=== PATIENT | female | born 1970 | race Caucasian/White ===

== ENCOUNTER → 2023-10-12 16:05 | Outpatient (REF) | payer OTHER, SELFPAY | LOC: HWWDC 16:05 | PROVIDERS: ATTENDING PHYSICIAN Nurse Practitioner Adult Health | DX: Z12.31 Encounter for screening mammogram for malignant neoplasm of breast (principal) | CPT/HCPCS: 77063; 77067 ==

== ENCOUNTER → 2024-06-15 09:13 | Outpatient (REF) | payer OTHER, SELFPAY | LOC: WDC 09:13 | PROVIDERS: ATTENDING PHYSICIAN Nurse Practitioner Family; FAMILY PHYSICIAN Family Medicine | DX: N63.10 Unspecified lump in the right breast, unspecified quadrant (principal); N64.4 Mastodynia | CPT/HCPCS: 76642; 77061; 77065 ==

== ENCOUNTER → 2024-12-06 11:09 | Outpatient (REF) | payer OTHER, SELFPAY | LOC: HWWDC 11:09 | PROVIDERS: ATTENDING PHYSICIAN Obstetrics & Gynecology Gynecology; FAMILY PHYSICIAN Family Medicine | DX: Z12.31 Encounter for screening mammogram for malignant neoplasm of breast (principal) | CPT/HCPCS: 77063; 77067 ==

== ENCOUNTER 2025-03-11 03:42 | Emergency (ER) | payer OTHER, SELFPAY ==
[2025-03-11 03:50] VITALS: BP 155/98
[2025-03-11 04:27] LABS: Hematocrit 41.2 % (37.0-47.0); Hemoglobin 14.5 g/dL (12.0-16.0); Mean Corp Hgb Conc. 35.2 g/dL (33.0-37.0); Mean Corpuscular Volume 83.4 fL (81.0-99.0); Nucleated Red Blood Cells % 0 %; Platelet Count 148 10^3/uL (130-400); Red Cell Dist. Width 12.2 % (11.5-14.5)
[2025-03-11 04:50] LABS: ALT (SGPT) 19 U/L (0-35); AST (SGOT) 18 U/L (14-36); Albumin 4.6 g/dl (3.5-5.0); Alkaline Phosphatase 72 U/L (38-126); Blood Urea Nitrogen 14 mg/dl (7-17); Calcium 9.8 mg/dl (8.4-10.2); Carbon Dioxide 24 mmol/L (22-30); Chloride 111 mmol/L (98-107); Glucose 103 mg/dl (70-99); Lipase 49 U/L (23-300); Potassium 3.8 mmol/L (3.5-5.1); Sodium 141 mmol/L (135-145); Total Protein 7.1 g/dl (6.3-8.2); eGFR > 60.00
[2025-03-11 05:02] LABS: Troponin I < 0.012 ng/ml
--- NOTE | 2025-03-11 05:10 | EDRN ---
Pt having intermittent pain x few days in epigastric area described as tightening. Pt to ED now because she wants to make sure 'it isn't anything heart problem.' No medications taken for pain. No provocation for pain with movement of time of day.
No n/v, fever/chills/cough, sob, abd pain, urinary symptoms.
[2025-03-11 05:15] VITALS: BP 168/90
--- NOTE | 2025-03-11 05:46 | ED.GENMED ---
History of Present Illness
<Thad Lester MD, Resident - Last Filed: 03/11/25 06:50>
General
Chief Complaint: Chest Pain
Source: patient
Exam Limitations: none
Time Seen by Provider: 03/11/25 05:17
Nursing documentation reviewed up to this point in time: agreed with
History of Present Illness
History of Present Illness:
This is a 54-year-old female with history of migraines, currently not on any medication, history of cholecystectomy presenting in the emergency department with complaints of intermittent epigastric pain for the last 2 days. She denies any fevers or
chills, denies any nausea or vomiting, denies any diarrhea or constipation, denies trouble breathing, denies chest pain, denies any recent travel and denies any recent sickness.
Past History
<Thad Lester MD, Resident - Last Filed: 03/11/25 06:50>
Past History
ED Past Medical History: Other (Migraines)
ED Past Surgical History: Cholecystectomy and Gynecological (Lumpectomy, ovarian cyst removal)
Patient has exhibited threatening behavior?: No
Social History
Tobacco: Non-smoker
Alcohol: None
Drug: None
Personal:
Living: with family
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
Family History
Family History: Hypertension, CAD and Other (Hypercholesterolemia)
Review of Systems
<Thad Lester MD, Resident - Last Filed: 03/11/25 06:50>
Review of Systems
Allergies reviewed?: Yes
All Other Systems: ROS reviewed and negative except as documented in HPI and ROS
Phy Exam
<Thad Lester MD, Resident - Last Filed: 03/11/25 06:50>
General Physical Exam
General Presentation: well appearing
General age: appears stated age
General Skin: warm
General Habitus: normal
General Mental: alert
General Hydration: appears well hydrated
Cardiovascular Exam
Cardiovascular Exam: regular rate/rhythm and no murmur
Pulmonary Exam
Pulmonary Exam: lungs clear, no crackles and no cough
Gastrointestinal Exam
Gastrointestinal Exam: normal bowel sounds, non tender, soft and non distended
Neurological Exam
Neurological Exam: alert and oriented x3
Scores
<Thad Lester MD, Resident - Last Filed: 03/11/25 06:50>
Heart Score for Chest Pain Patients
STEMI patient?: Not applicable
Course
<Thad Lester MD, Resident - Last Filed: 03/11/25 06:50>
Orders/Labs/Results
Orders:
Orders
03/11/25 03:43
EKG [Electrocardiogram (*1)] Urgent
Reason for Study: Chest Pain
Other Reason for Exam: epigastric/substernal pain
03/11/25 03:44
EKG- Treatment ONCE
03/11/25 04:07
EKG- Treatment ONCE
03/11/25 04:17
Complete Blood Count/With Diff Urgent
Comprehensive Metabolic Panel Urgent
Lipase Urgent
Troponin I Urgent
03/11/25 06:01
Mag Hydrox/Al Hydrox/Simeth [Maalox] 30 ml Phenobarb/Hyoscy/Atropine/Scop [] 10 ml PO NOW
03/11/25 06:13
Mag Hydrox/Al Hydrox/Simeth [Maalox] 30 ml .ROUTE .STK-MED ONE
Phenobarb/Hyoscy/Atropine/Scop [] 10 ml .ROUTE .STK-MED ONE
Abnormal Lab Results
03/11/25
04:17
WBC 4.4 L 10^3/uL
(4.8-10.8)
Chloride 111 H mmol/L
(98-107)
Glucose 103 H mg/dl
(70-99)
03/11/25 04:17
03/11/25 04:17
Vital Signs
Initial and Last Documented VS:
Initial Vital Signs
Temp Pulse Resp BP Pulse Ox
98.6 F 82 12 155/98 98
03/11/25 03:50 03/11/25 03:50 03/11/25 03:50 03/11/25 03:50 03/11/25 03:50
Last Documented Vital Signs
Temp Pulse Resp BP Pulse Ox
98.6 F 85 14 152/87 98
03/11/25 03:50 03/11/25 06:12 03/11/25 06:12 03/11/25 06:12 03/11/25 06:12
<Urbano Rebollar, DO - Last Filed: 03/11/25 06:08>
Orders/Labs/Results
Orders:
Orders
03/11/25 03:43
EKG [Electrocardiogram (*1)] Urgent
Reason for Study: Chest Pain
Other Reason for Exam: epigastric/substernal pain
03/11/25 03:44
EKG- Treatment ONCE
03/11/25 04:07
EKG- Treatment ONCE
03/11/25 04:17
Complete Blood Count/With Diff Urgent
Comprehensive Metabolic Panel Urgent
Lipase Urgent
Troponin I Urgent
03/11/25 06:01
Mag Hydrox/Al Hydrox/Simeth [Maalox] 30 ml Phenobarb/Hyoscy/Atropine/Scop [] 10 ml PO NOW
03/11/25 06:13
Mag Hydrox/Al Hydrox/Simeth [Maalox] 30 ml .ROUTE .STK-MED ONE
Phenobarb/Hyoscy/Atropine/Scop [] 10 ml .ROUTE .STK-MED ONE
Abnormal Lab Results
03/11/25
04:17
WBC 4.4 L 10^3/uL
(4.8-10.8)
Chloride 111 H mmol/L
(98-107)
Glucose 103 H mg/dl
(70-99)
03/11/25 04:17
03/11/25 04:17
Vital Signs
Initial and Last Documented VS:
Initial Vital Signs
Temp Pulse Resp BP Pulse Ox
98.6 F 82 12 155/98 98
03/11/25 03:50 03/11/25 03:50 03/11/25 03:50 03/11/25 03:50 03/11/25 03:50
Last Documented Vital Signs
Temp Pulse Resp BP Pulse Ox
98.6 F 85 14 152/87 98
03/11/25 03:50 03/11/25 06:12 03/11/25 06:12 03/11/25 06:12 03/11/25 06:12
<Thad Lester MD, Resident - Last Filed: 03/11/25 06:50>
MDM/Problems Addressed
Differential Diagnosis Includes:
GERD vs PUD vs less likely cardiac vs esophageal spasm vs unlikely pulmonary
MDM/Problems Addressed:
CBC unremarkable
CMP with mild elevation of chloride at
Troponins undetectable
Lipase within normal limits
EKG with normal sinus rhythm
Will try Maalox
Update: Patient reported some improvement in her epigastric discomfort. No indication of any imaging studies at this time
Likely her symptoms are related to indigestion/GERD. She did see was made with the patient discharged home, will send some Protonix to the pharmacy. Return precautions reviewed. Patient voices understanding agree with the plan.
GI specialist information was provided to the patient upon discharge.
<Thad Lester MD, Resident - Last Filed: 03/11/25 06:50>
*Pulse Oximetry
SaO2: 97
Oxygen Mode of Delivery: Room air
Patient hypoxic: no
*Critical Care Note
Total Time (30-74mins, 75-104mins- exclusive of procedures): Not Applicable
ED Attending Note
<Thad Lester MD, Resident - Last Filed: 03/11/25 06:50>
-
Portions of this chart may have been created with voice recognition software.� Occasional wrong word or��sound alike� substitutions may have occurred due to the inherent limitations of voice recognition software.
<Urbano Rebollar DO - Last Filed: 03/11/25 06:08>
ED Attending Note
Patient seen and examined by attending physician: Yes
I performed a history and physical exam of patient and discussed management with resident, I reviewed resident's note and agree with documented findings and plan of care.: Yes
ED Attending Note:
Seen with resident examined independently 54-year-old female epigastric pain, using Tylenol as needed for headaches, gallbladder is been removed, EKG troponin noted lipase noted, describes a pressure cramp, will try Maalox consideration for
starting PPI empirically
On exam abdomen is soft no lower abdominal tenderness
Discharge Plan
Departure
Patient Disposition: Home (Routine Discharge)
Date of Disposition: 03/11/25
Time of Disposition: 06:46
Patient with high blood pressure during this ER visit?: Yes
Condition: Good
Discharge Problem:
GERD (gastroesophageal reflux disease)
Instructions: Acid Reflux and GERD in Adults (DC)
Prescriptions:
New
pantoprazole [Protonix] 40 mg tablet,delayed release (DR/EC)
40 mg PO DAILY Qty: 14 0RF
Referrals:
Rosalia Rai MD [Active, Gastroenterology] - Follow up in 5-7 days
UNKNOWN - PT DOES,NOT KNOW [Unknown Provider]
Activity Restrictions/Additional Instructions:
You were seen in the [facility] emergency department with concerns of upper abdominal discomfort. While you were in the ER we did blood work including complete blood count, complete metabolic panel, troponin, lipase. All the blood
pressure came back normal. You also had an EKG which was normal. You received 1 dose of Maalox. A prescription of Protonix was sent to your pharmacy. General Service Technician information is also attached with the paperwork, if the symptoms do not
improve please follow-up with gastroenterology outpatient. If you develop any new symptoms or worrisome concerns please return to the emergency department.
Interventions
Interventions:
*Risk Screen - Suicide Last Done: 03/11/25 03:45
*General Assessment Last Done: 03/11/25 05:09
*Neglect/Abuse Screening Last Done: 03/11/25 04:52
*ED- Fall Risk Assessment Last Done: 03/11/25 05:09
ED- Cardiac Assessment Last Done: 03/11/25 05:17
Discharge Date and Time
Print Language: J[place]
[2025-03-11 06:12] VITALS: BP 152/87
[2025-03-11] MEDS: MAALOX 40 PO (06:14)
[2025-03-11 06:51] VITALS: BP 147/91
== END 2025-03-11 06:57 | disposition home or self-care (01) ==
LOC: EMR 03:42
PROVIDERS: EMERGENCY PHYSICIAN Emergency Medicine; FAMILY PHYSICIAN Family Medicine
DX: K21.9 Gastro-esophageal reflux disease without esophagitis (principal); R03.0 Elevated blood-pressure reading, without diagnosis of hypertension
CPT/HCPCS: 99284; 80053; 83690; 84484; 85025; 93005

== ENCOUNTER 2025-03-29 06:23 | Day surgery (SDC) | payer OTHER, SELFPAY | END 2025-03-29 13:31 | disposition home or self-care (01) | LOC: GI 06:23 | PROVIDERS: ATTENDING PHYSICIAN Internal Medicine | DX: Z12.11 Encounter for screening for malignant neoplasm of colon (principal); K57.30 Diverticulosis of large intestine without perforation or abscess without bleeding; K64.8 Other hemorrhoids; R10.13 Epigastric pain; K44.9 Diaphragmatic hernia without obstruction or gangrene; K22.89 Other specified disease of esophagus; K31.7 Polyp of stomach and duodenum; K31.89 Other diseases of stomach and duodenum; D12.4 Benign neoplasm of descending colon; K22.70 Barrett's esophagus without dysplasia; Z83.719 Family history of colon polyps, unspecified | CPT/HCPCS: 45385; 43239; 88305; 88342 ==